=== PATIENT | female | born 1975 ===

== ENCOUNTER 2019-10-13 12:05 | Emergency (ER) | payer SELFPAY ==
--- NOTE | 2019-10-13 12:16 | EDM.PDOC ---
ED HPI GENERAL MEDICAL PROBLEM - General Chief Complaint: Upper Extremity Injury/Pain Stated Complaint: LT SHOULDER INJURY Time Seen by Provider: 10/13/19 12:13 Source of Information: Reports: Patient History Limitations: Reports: No Limitations - History of Present Illness INITIAL COMMENTS - FREE TEXT/NARRATIVE: HISTORY AND PHYSICAL: History of present illness: Patient is a 44-year-old female who presents to the emergency room with complaints of left shoulder pain. She states she was walking down the stairs and had tripped on the last step (few inches off the ground) falling onto the ground onto her left shoulder. She denies hitting her head or having any loss of consciousness. She denies any other extremity involvement. Offers no systemic complaints. Review of systems: As per history of present illness and below otherwise all systems reviewed and negative. Past medical history: As per history of present illness and as reviewed below otherwise noncontributo ry. Surgical history: As per history of present illness and as reviewed below otherwise noncontributory. Social history: See social history for further information Family history: As per history of present illness and as reviewed below otherwise noncontributory. Physical exam: General: Well-developed and well-nourished 44-year-old female. Alert and oriented. Nontoxic-appearing and in no acute distress. Vital signs are stable and have been reviewed by me. HEENT: Atraumatic, normocephalic, pupils equal and reactive bilaterally, negative for conjunctival pallor or scleral icterus, mucous membranes moist, TMs normal bilaterally, throat clear, neck supple, nontender, trachea midline. No drooling or trismus noted. No meningeal signs. No hot potato voice noted. Lungs: Clear to auscultation, breath sounds equal bilaterally, chest nontender. Heart: S1S2, regular rate and rhythm without overt murmur Abdomen: Soft, nondistended, nontender. Negative for masses or hepatosplenomegaly. Negative for costovertebral tenderness. Pelvis: Stable nontender. C-spine/Back: No pinpoint vertebral tenderness upon palpation. No crepitus, step-offs or obvious deformities. Patient is ambulatory into the emergency room without difficulty or deficit. Able to rock back on heels and walk on toes. Denies any urinary or fecal incontinence. Denies any numbness, tingling or saddle paresthesia. No concerns of serious infection, fracture or cord compression, or cauda equina syndrome. Deep tendon reflexes brisk bilaterally. Skin: Intact, warm, dry. No lesions or rashes noted. Extremities: Limited range of motion of the left shoulder, pain with palpation of the shoulder girdle. Distal clavicle pain, no tenting noted. She moves all other extremities per self without difficulty or deficits, negative for cords or calf pain. Neurovascular unremarkable. Neuro: Awake, alert, oriented. Cranial nerves II through XII unremarkable. Cerebellum unremarkable. Motor and sensory unremarkable throughout. Exam no nfocal. Notes: X-ray shows a mildly comminuted and displaced left clavicle fracture. Otherwise unremarkable. Patient was placed in a sling. Nursing staff did make her an appointment with the orthopedic provider. We discussed the need for follow-up and reviewed signs and symptoms that would prompt her to return to the emergency room. Supportive care measures were reviewed and discussed. Voices understanding and is agreeable to plan of care. Denies any further questions or concerns at this time. Diagnostics: X-ray Therapeutics: Sling Prescription: [place] (#20) Impression: Fall Left clavicular fracture Plan: 1. Rest, ice, elevate as able. Please wear the sling for comfort. 2. Tylenol and/or ibuprofen as needed for pain management. [place] has been prescribed for you. This medication is a narcotic so do not take it while driving or needing to be functioning outside of the house. 3. You have an orthopedic appointment with Dr Hobson at 11am on Thursday (10/18/2019) at the [address] [place] [address]. Please arrive 20-30 minutes early. 4. Return to the emergency room as needed and as discussed. Definitive disposition and diagnosis as appropriate pending reevaluation and review of above. Left Shoulder Pain Score (Numeric/FACES): 10 - Related Data Allergies Allergy/AdvReac Type Severity Reaction Status Date / Time No Known Allergies Allergy Verified 10/13/19 12:16 Home Meds: Home Meds Acetaminophen/HYDROcodone [[place] 325-5 MG] 1 dose PO Q4H #20 tablet 10/13/19 [Rx] Review of Systems - Review of Systems Review Of Systems: Comprehensive ROS is negative, except as noted in HPI. ED EXAM, GENERAL - Physical Exam Exam: See Below (See dictation) Course - Vital Signs Last Recorded V/S: Last Vital Signs Temp 98.9 F 06/25/20 12:16 Pulse 93 10/13/19 12:16 Resp 16 10/13/19 12:16 BP 128/89 10/13/19 12:16 Pulse Ox 96 10/13/19 12:16 - Orders/Labs/Meds Orders: Active Orders 24 hr Category Date Time Status DME for Discharge [COMM] Stat Oth 10/13/19 12:45 Ordered Departure - Departure Time of Disposition: 13:03 Disposition: Home, Self-Care 01 Clinical Impression: Fracture of clavicle Qualifiers: Encounter type: initial encounter Clavicle location: shaft Fracture type: closed Fracture alignment: displaced Laterality: left Qualified Code(s): S42.022A - Displaced fracture of shaft of left clavicle, initial encounter for closed fracture Fall Qualifiers: Encounter type: initial encounter Qualified Code(s): W19.XXXA - Unspecified fall, initial encounter - Discharge Information Prescriptions: Acetaminophen/HYDROcodone [[place] 325-5 MG] 1 dose PO Q4H #20 tablet Instructions: Clavicle Fracture, [id number] Referrals: PCP,None [Primary Care Provider] - Forms: ED Department Discharge Additional Instructions: The following information is given to patients seen in the emergency department who are being discharged to home. This information is to outline your options for follow-up care. We provide all patients seen in our emergency department with a follow-up referral. The need for follow-up, as well as the timing and circumstances, are variable depending upon the specifics of your emergency department visit. If you don't have a primary care physician on staff, we will provide you with a referral. We always advise you to contact your personal physician following an emergency department visit to inform them of the circumstance of the visit and for follow-up with them and/or the need for any referrals to a consulting specialist. The emergency department will also refer you to a specialist when appropriate. This referral assures that you have the opportunity for follow-up care with a specialist. All of these measure are taken in an effort to provide you with optimal care, which includes your follow-up. Under all circumstances we always encourage you to contact your private physician who remains a resource for coordinating your care. When calling for follow-up care, please make the office aware that this follow-up is from your recent emergency room visit. If for any reason you are refused follow-up, please contact the [facility] Emergency Department at and asked to speak to the emergency department charge nurse. [facility] [address] [place] [address] [facility] [address] [place] [id number] 1. Rest, ice, elevate as able. Please wear the sling for comfort. 2. Tylenol and/or ibuprofen as needed for pain management. [place] has been prescribed for you. This medication is a narcotic so do not take it while driving or needing to be functioning outside of the house. 3. You have an orthopedic appointment with Dr Hobson at 11am on Thursday (10/18/2019) at the [address] [place] [address]. Please arrive 20-30 minutes early. 4. Return to the emergency room as needed and as discussed. Sepsis Event Note (ED) - Focused Exam Vital Signs: Vital Signs Temp Pulse Resp BP Pulse Ox 10/13/19 12:16 98.9 F 93 16 128/89 96 - My Orders Last 24 Hours: My Active Orders 10/13/19 12:45 DME for Discharge [COMM] Stat - Assessment/Plan Last 24 Hours: My Active Orders 10/13/19 12:45 DME for Discharge [COMM] Stat
[2019-10-13 12:19] VITALS: BP 128/89; PULSE 93
--- NOTE | 2019-10-13 13:01 | CR ---
Left shoulder: 3 views of the left shoulder were obtained. Comparison: No previous study. Mildly comminuted and displaced left clavicle fracture is noted. Glenohumeral joint is normal. No additional abnormality is appreciated. Impression: 1. Left clavicle fracture as described above. Diagnostic code #3 This report was dictated in MDT
== END 2019-10-13 13:12 | disposition home or self-care (01) ==
LOC: MW.ED 12:05
DX: S42.022A Displaced fracture of shaft of left clavicle, initial encounter for closed fracture (principal); W10.8XXA Fall (on) (from) other stairs and steps, initial encounter
CPT/HCPCS: 73030-26-LT; 73030-LT; 99283

== ENCOUNTER 2019-10-19 12:16 | Day surgery (SDC) | payer SELFPAY ==
[~2019-10-19 12:16] MED LIST: Lactated Ringers 1,000 ML IV SCH; Ondansetron 4 MG/2 ML SDV IVPUSH ONE; ceFAZolin 1 GM in Premix Bag 1 BAG IV SCH; fentaNYL 100 MCG/2 ML SDV IVPUSH PRN
--- NOTE | 2019-10-19 13:33 | PCM.PREANE ---
Preanesthetic Assessment - Anesthesia/Transfusion/Family Hx Anesthesia History: Prior Anesthesia Without Reaction Family History of Anesthesia Reaction: No Transfusion History: Unknown - Review of Systems General: No Symptoms Pulmonary: No Symptoms Cardiovascular: No Symptoms Gastrointestinal: No Symptoms Neurological: No Symptoms Other: Reports: None - Physical Assessment NPO Status Date: 10/19/19 NPO Status Time: 07:30 Vital Signs: Last Vital Signs Temp 98.2 F 10/19/19 12:25 Pulse 80 10/19/19 12:25 Resp 18 10/19/19 12:25 BP 111/78 10/19/19 12:25 Pulse Ox 96 10/19/19 12:25 Height: 5 ft Weight: 43.091 kg ASA Class: 1 Mental Status: Alert & Oriented x3 Airway Class: Mallampati = 3 Dentition: Reports: Normal Dentition ROM/Head Extension: Full Lungs: Clear to Auscultation, Normal Respiratory Effort Cardiovascular: Regular Rate, Regular Rhythm - Allergies Allergies/Adverse Reactions: Allergies Allergy/AdvReac Type Severity Reaction Status Date / Time No Known Allergies Allergy Verified 10/18/19 15:22 - Blood Blood Available: No - Anesthesia Plan Pre-Op Medication Ordered: None - Acknowledgements Anesthesia Type Planned: General Anesthesia Pt an Appropriate Candidate for the Planned Anesthesia: Yes Alternatives and Risks of Anesthesia Discussed w Pt/Guardian: Yes Pt/Guardian Understands and Agrees with Anesthesia Plan: Yes PreAnesthesia Questionnaire - Past Health History Medical/Surgical History: Denies Medical/Surgical History HEENT History: Reports: Other (See Below) Other HEENT History: wears glasses 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 Neurological History: Reports: Other (See Below) Other Neuro History: hx of motion sickness Dermatologic History: Reports: Other (See Below) Other Dermatologic History: current rash on arms - Infectious Disease History Infectious Disease History: Reports: None - Past Surgical History Head Surgeries/Procedures: Reports: None Female Surgical History: Reports: Other (See Below) Other Female Surgeries/Procedures: surgery for Ectopic - SUBSTANCE USE Smoking Status *Q: Never Smoker Recreational Drug Use History: No - HOME MEDS Home Medications: Home Meds Acetaminophen/HYDROcodone [[place] 325-5 MG] 1 dose PO Q4H #20 tablet 10/13/19 [R x] Ascorbic Acid [Vitamin C] 1,000 mg PO DAILY 10/18/19 [History] Vitamin B3 125 mcg PO DAILY 10/18/19 [History] Vitamin E 180 unit PO DAILY 10/18/19 [History] desogestreL-ethinyl estradioL [[place] 28 Day Tablet] 1 tab PO DAILY 10/18/19 [History] - CURRENT (IN HOUSE) MEDS Current Meds: Current Medications Fentanyl (Sublimaze) 50 mcg IVPUSH Q5M PRN PRN Reason: Pain (severe 7-10) Stop: 10/20/19 07:23 Lactated Ringer's (Ringers, Lactated) 1,000 mls @ 100 mls/hr IV ASDIRECTED JORGE LUIS Cefazolin Sodium/Dextrose 1 gm (/ Premix) 50 mls @ 100 mls/hr IV ONCALL JORGE LUIS Discontinued Medications Ondansetron HCl (Zofran) 4 mg IVPUSH ONETIME ONE Stop: 10/19/19 07:23
[2019-10-19] MEDS ORDERED: Rocuronium Bromide 50 MG/5 ML Syringe ONE (14:54)
[2019-10-19] MEDS ORDERED: Midazolam 1 MG/ML 2 ML SDV ONE (14:54)
[2019-10-19] MEDS ORDERED: fentaNYL 100 MCG/2 ML SDV ONE (14:54)
[2019-10-19] MEDS ORDERED: Propofol 200 MG/20 ML SDV ONE (14:55)
[2019-10-19] MEDS ORDERED: Dexamethasone 4 MG/ML 5 ML MDV ONE (15:00)
[2019-10-19] MEDS ORDERED: Ondansetron 4 MG/2 ML SDV ONE (15:00)
[2019-10-19] MEDS ORDERED: Ketorolac 30 MG/ML SDV ONE (15:00)
[2019-10-19] MEDS ORDERED: ePHEDrine 50 MG/ML SDV ONE (15:00)
[2019-10-19] MEDS ORDERED: Bupivacaine 0.25% 10 ML SDV ONE (15:36)
[2019-10-19] MEDS ORDERED: Glycopyrrolate 0.2 MG/ML SDV ONE (17:27)
[2019-10-19] MEDS ORDERED: Bupivacaine 0.25%/EPINEPHrine 1:200,000 10 ML SDV ONE (17:48)
--- NOTE | 2019-10-19 18:06 | PCM.OPNOTE ---
- General Post-Op/Procedure Note Date of Surgery/Procedure: 10/19/19 Operative Procedure(s): Open reduction and internal fixation of left clavicle shaft fracture Findings: Left comminuted, displaced clavicle shaft fracture Pre Op Diagnosis: Left comminuted, displaced clavicle shaft fracture Post-Op Diagnosis: Left comminuted, displaced clavicle shaft fracture Anesthesia Technique: General ET Tube Primary Surgeon: Dash Hobson Furnace Unloader: Lisa Ellis Reason Furnace Unloader Was Necessary: Retraction and fracture reduction EBL in mLs: 10 Complications: None Condition: Good Free Text/Narrative:: Patient sustained a left displaced, comminuted clavicle shaft fracture after falling at the bottom of some stairs. The amount of displacement and the Z formally, I recommended open reduction and internal fixation. We reviewed the risks and benefits of operative versus nonoperative treatment of clavicle shaft fractures. All questions were answered. Patient consented to proceed with surgery. Patient was taken to the operating room. After adequate general anesthesia, she was placed in a beachchair position. The left upper extremity, ulnar, and chest wall were prepped and draped in the sterile manner. A transverse incision was made along the anterior border of the clavicle. Skin was incised with a scalpel. Subcutaneous tissue was incised electrocautery. The fascia was elevated off the fracture. The butterfly fragment was reduced to the lateral shaft fragment and fixed with a lag screw. The medial and lateral shaft fragments were then reduced and held with a clamp. A 6-hole superior clavicle plate was then applied and screws placed in the medial lateral fragments. Fracture reduction was maintained while 2 additional screws were placed medially and 2 additional screws were placed laterally. Visual inspection of the fracture showed that it was nearly anatomically reduced with good fixation. The fascia was closed with interrupted #1 Vicryl sutures. Marcaine with epinephrine was injected in the subcutaneous tissue for pain management. Subcutaneous tissue is closed with interrupted 2-0 Vicryl suture. Skin was closed with a running subcuticular absorbable monofilament suture. Patient was placed in a sterile dressing and a sling and accompanied to the recovery room in stable condition. Pain medications: Ibuprofen, acetaminophen, and [place]. Prophylactic antibiotics not indicated Venous thromboembolism prophylaxis not indicated Patient has active and passive range of motion of motion of her shoulder up to 90 of forward elevation but should not raise above shoulder height for 6 weeks. No weightbearing or lifting greater than 1 pound for 3 months and the left upper extremity.
[2019-10-19] MEDS ORDERED: Acetaminophen/HYDROcodone 325-5 MG Tab PO PRN (18:25)
[2019-10-19] MEDS: fentaNYL 100 MCG/2 ML SDV IVPUSH PRN ×2 (18:38→18:48)
--- NOTE | 2019-10-19 19:40 | PCM.POSTAN ---
POST ANESTHESIA ASSESSMENT - MENTAL STATUS Mental Status: Alert, Oriented - VITAL SIGNS Vital Signs: Last Vital Signs Temp 98.6 F 10/19/19 19:13 Pulse 73 10/19/19 19:13 Resp 14 10/19/19 19:13 BP 126/78 10/19/19 19:13 Pulse Ox 96 10/19/19 19:13 - RESPIRATORY Respiratory Status: Respiratory Rate WNL, Airway Patent, O2 Saturation Stable - CARDIOVASCULAR CV Status: Pulse Rate WNL, Blood Pressure Stable - GASTROINTESTINAL GI Status: No Symptoms - POST OP HYDRATION Hydration Status: Adequate & Stable
--- NOTE | 2019-10-19 22:01 | PCM.SN.2 ---
- Free Text/Narrative Note: In room to assess patient anesthesia status. Patient is more awake than she was 1 1/2 hours ago but she remains sleepy and states she feels weak. She has eaten jello and crackers without nausea. HAILEY Villarreal and myself tried to walk her to the bathroom and she walked about 3 steps and stated that felt like she was going to puke and pass out. We assisted her back to bed immediately. I talked to Dr. Pérez who states that she should spend the night and make it a 23 hour stay and that if her continues to insist that she go home that they need to sign an AMA form. HAILEY Villarreal aware of this and calling Dr. Hobson.
[2019-10-19 23:24] VITALS: BP 121/72; PULSE 79
== END 2019-10-19 23:15 | disposition home or self-care (01) ==
LOC: MW.SDS 12:16 → MW.MS 18:40 → MW.SDS 23:15
PROVIDERS: ATTEND Orthopaedic Surgery
DX: S42.022A Displaced fracture of shaft of left clavicle, initial encounter for closed fracture (principal); W01.0XXA Fall on same level from slipping, tripping and stumbling without subsequent striking against object, initial encounter
CPT/HCPCS: 23515; 81025; 87635; J1100; J1885; J2250; J2405; J2704; J3010; J3490; U0002